=== PATIENT | male | born 1960 | race African-American/Black ===

== ENCOUNTER 2018-02-14 03:37 | Inpatient (IN) ==
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
[2018-02-14 06:29] LABS: Baso # (Auto) 0.1 th/mm3 (0.0-0.2); Baso % (Auto) 0.6 % (0.0-2.0); Hematocrit 41.3 % (39.0-51.0); Hemoglobin 13.6 gm/dL (13.0-17.0); Lymph # (Auto) 1.4 th/mm3 (1.0-4.8); Lymph % (Auto) 14.2 % (9.0-44.0); Mean Corpuscular Hemoglobin 31.7 pg (27.0-34.0); Mean Platelet Volume 7.9 fL (7.0-11.0); Mono # (Auto) 0.7 th/mm3 (0.0-0.9); Mono % (Auto) 7.5 % (0.0-8.0); Neut # (Auto) 7.8 th/mm3 (1.8-7.7); Neut % (Auto) 77.7 % (16.0-70.0); Platelet Count 332 th/mm3 (150-450); Red Cell Distribution Width 13.7 % (11.6-17.2)
[2018-02-14 06:43] LABS: Prothrombin Time 10.2 sec (9.8-11.6)
[2018-02-14 06:57] LABS: Albumin 3.6 g/dL (3.4-5.0); Anion Gap 8 meq/L (5-15); Aspartate Aminotransferase 38 U/L (15-37); Blood Urea Nitrogen 13 mg/dL (7-18); Calcium 8.7 mg/dL (8.5-10.1); Carbon Dioxide 22.6 meq/L (21.0-32.0); Chloride 105 meq/L (98-107); Glomerular Filtration Rate 77 mL/min (>89); Glucose,Random 99 mg/dL (74-106); Potassium 4.1 meq/L (3.5-5.1); Sodium 136 meq/L (136-145)
[2018-02-14 06:58] LABS: Alanine Aminotransferase 27 U/L (12-78)
[2018-02-14 07:00] LABS: Alkaline Phosphatase 91 U/L (45-117); Total Protein 8.5 g/dL (6.4-8.2)
--- NOTE | 2018-02-14 07:57 | ECG ---
Date Performed: 02/14/2018 Time Performed: 03:48:55 PTAGE: 58 years EKG: Baseline artifact present Sinus rhythm NORMAL ECG No significant change from prior electrocardiogram. PREVIOUS TRACING : 01/15/2006 12.54 DOCTOR: Macro Post Interpretating Date/Time 02/14/2018 07:57:23
[2018-02-14] MEDS ORDERED: Acetaminophen 325 MG Tablet PO PRN (08:00)
[2018-02-14] MEDS ORDERED: Diatrizoate Meglum/Diatrizoate Sod Liq 9 ML UDC PO ONE (10:00)
[2018-02-14] MEDS ORDERED: fentaNYL Citrate Inj 250 MCG/5 ML Ampul ONE (10:36)
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
--- NOTE | 2018-02-14 11:29 | P.RAD ---
Post CT Procedure Prog Note - Pre Procedure Diagnosis (1) Acute chest wall pain - Post Procedure Diagnosis (1) Acute chest wall pain - Procedure Information Procedure Date: 02/14/18 Supervising Radiologist: Clifford Jorgensen MD Anesthesia: Conscious Sedation - Plan of Activity Patient to Unit: Nursing Unit Patient condition: Good See PACS Report for procedural detail/treatment. Biopsy CT right Lung Specimen: Core Biopsy Fluid Description: Other (black)
--- NOTE | 2018-02-14 12:15 | XR ---
EXAM DATE: 02/14/2018 12:02 PM EST AGE/SEX: 58 years / Male INDICATIONS: S/P Right Lung Biopsy. Patient complains of chest pain. CLINICAL DATA: This is the patient's initial encounter. Patient reports that signs and symptoms have been present for 1 day and indicates a pain score of Nonresponsive. MEDICAL/SURGICAL HISTORY: None. None. COMPARISON: No prior exams available for comparison. FINDINGS The lungs are clear without infiltrate, nodule, or mass. There is no appreciable pleural ef fusion for technique. Heart and mediastinum are unremarkable. CONCLUSION: No acute cardiopulmonary disease. Electronically signed by: Nakul Myers MD 02/14/2018 12:14 PM EST
[2018-02-14] MEDS ORDERED: Naloxone Inj 0.4 MG/ML Vial IV.PUSH PRN (13:08)
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
--- NOTE | 2018-02-14 14:53 | CT ---
EXAM DATE: 02/14/2018 12:04 PM EST AGE/SEX: 58 years / Male INDICATIONS: Right lung mass CLINICAL DATA: This is the patient's initial encounter. Patient reports that signs and symptoms have been present for 1 day and indicates a pain score of 0/10. MEDICAL/SURGICAL HISTORY: None. None. COMPARISON: [facility] – [place], [place] CHEST W/O CONTRAST, 02/14/2018. . SEDATION TIME (min): 50 BIOPSY SITE: Right lung MEDICATION(S): 1 mg midazolam (Versed) IV 50 mcg fentanyl (Sublimaze) IV DEVICE(S): 19 gauge Introducer 19 gauge BARD biopsy needle Four . . PROCEDURE: CT guided Right lung biopsy Prior to the procedure informed consent was obtained. Any appropriate prior imaging studies were rev iewed. Using automated exposure control and adjustment of the mA and/or kV according to patient size , radiation dose was kept as low as reasonably achievable to obtain optimal diagnostic quality images . DICOM format image data is available electronically for review and comparison. The site was prepped in a sterile fashion. Full sterile technique was used, including cap, mask, meagan rile gloves and gown and a large sterile sheet. Hand hygiene and 2% chlorhexidine and/or betadine/al cohol prep was utilized per protocol for cutaneous antisepsis. The skin and subcutaneous tissues wer e infiltrated with local anesthetic solution. With CT guidance the previously identified target was localized. Biopsy was performed using the presc ribed needle as above. Adequate hemostasis was obtained with compression at the puncture site. Follow-up CT scan reveals no pneumothorax. Conscious sedation was performed with the prescribed dosages and duration as above in the presence of an independent trained radiology nurse to assist in the monitoring of the patient. EKG and oximetry remained stable throughout the procedure. The patient tolerated the procedure well and there were no complications. The patient was sent to Radiology Outpatient Unit in stable condition. FINDINGS: CONCLUSION: 1. Uncomplicated CT guided biopsy. Electronically signed by: Clifford Jorgensen MD 02/14/2018 2:52 PM EST
[2018-02-14] MEDS ORDERED: Haloperidol Inj 5 MG/ML Ampul IV.PUSH PRN (15:00)
[2018-02-14] MEDS ORDERED: Morphine Inj 4 MG/ML Vial IV.PUSH PRN ×2 (15:00)
[2018-02-14] MEDS ORDERED: LORazepam 1 MG Tablet PO PRN (15:00)
[2018-02-14] MEDS ORDERED: Morphine Sulfate Inj 2 MG/ML Vial IV.PUSH PRN (15:00)
[2018-02-14] MEDS ORDERED: Bisacodyl 10 MG Supp RECTAL PRN (15:00)
[2018-02-14] MEDS: oxyCODONE/Acetaminophen 10/325 Tablet PO PRN (15:03)
[2018-02-14 15:07] LABS: Free T4 (Free Thyroxine) 0.72 ng/dL (0.76-1.46); Thyroid Stimulating Hormone 1.38 uIU/mL (0.358-3.740)
--- NOTE | 2018-02-14 15:09 | XR ---
EXAM DATE: 02/14/2018 3:03 PM EST AGE/SEX: 58 years / Male INDICATIONS: Left hand pain from unknown injury, possible infection. CLINICAL DATA: This is the patient's initial encounter. Patient reports that signs and symptoms have been present for 1 day and indicates a pain score of 8/10. MEDICAL/SURGICAL HISTORY: None. None. COMPARISON: No prior exams available for comparison. FINDINGS: AP, lateral and oblique views of the left hand were obtained and demonstrate extensive soft tissue sw elling over the third digit. There is hazy periosteal new bone formation along the ulnar aspect of th e third middle phalanx. There are no radiopaque foreign bodies. There are diffuse degenerative joint changes greatest involving the third distal interphalangeal joint with joint space loss, sclerosis an d spurring. CONCLUSION: 1. Soft tissue swelling and hazy periosteal new bone formation involving the third middle phalanx. T his is concern for possible osteomyelitis. 2. Osteoarthritic change. Electronically signed by: Endy Heller MD 02/14/2018 3:08 PM EST
--- NOTE | 2018-02-14 15:28 | XR ---
EXAM DATE: 02/14/2018 3:04 PM EST AGE/SEX: 58 years / Male INDICATIONS: Status post right side lung biopsy. CLINICAL DATA: This is the patient's subsequent encounter. Patient reports that signs and symptoms h ave been present for 1 day and indicates a pain score of 4/10. MEDICAL/SURGICAL HISTORY: None. None. [place] [facility] [place]14/[place]. . FINDINGS: No definite pneumothorax is seen for technique. Right upper lobe mass is again seen not changed, baumann alan best visualized on the patient's prior chest CT obscured by the adjacent ribs. CONCLUSION: No pneumothorax post lung biopsy. Electronically signed by: Nakul Myers MD 02/14/2018 3:26 PM EST
[2018-02-14 16:20] LABS: Hepatitits B Surface Antigen Nonreactive (Nonreactive)
[2018-02-14 16:21] LABS: Hepatitis A IgM Antibody Nonreactive (Nonreactive)
[2018-02-14 17:03] LABS: Hemoglobin A1c 4.7 % (4.3-6.0)
--- NOTE | 2018-02-14 20:23 | CT ---
EXAM DATE: 02/14/2018 8:15 PM EST AGE/SEX: 58 years / Male INDICATIONS: Lung mass, abdomen pain. CLINICAL DATA: This is the patient's initial encounter. Patient reports that signs and symptoms have been present for 1 day and indicates a pain score of 5/10. MEDICAL/SURGICAL HISTORY: Hypertension. None. ORAL CONTRAST: Prescribed oral contrast ingested. RADIATION DOSE: 6.97 CTDI (mGy) COMPARISON: [facility] [place]ST [place]/O [place]AST, 02/14/2018. . TECHNIQUE: Multiple contiguous axial images were obtained through the abdomen and pelvis following b olus infusion of 94 ml Omnipaque 350 (iohexol) nonionic water-soluble contrast as a single exam dos e. Prescribed oral contrast ingested. Using automated exposure control and adjustment of the mA and/ or kV according to patient size, radiation dose was kept as low as reasonably achievable to obtain op timal diagnostic quality images. DICOM format image data is available electronically for review and comparison. FINDINGS: There is a right-sided pneumothorax identified. There is atelectasis at the right lung base. No pleur al or pericardial effusions are seen. A tiny low-density lesion in the posterior right hepatic lobe t oo small to characterize by CT criteria. It measures 6.6 mm on image 31. Gallbladder, spleen, pancrea s, adrenals, kidneys unremarkable. The appendix is normal. Urinary bladder, prostate unremarkable. Th ere is no evidence for bowel obstruction. Scattered atherosclerotic plaquing of the aorta and iliac v essels are seen. There is a small fat-containing umbilical hernia. The examination demonstrates righ t inguinal adenopathy up to 1.8 cm in short axis dimension. There are degenerative changes of the spi ne noted. There is moderate to severe osteoarthritis of the bilateral hips. There is some heterotopic bone seen extending anteriorly from the left acetabulum. There is an intramuscular lipoma is suspect ed near the insertion of the iliopsoas muscle. CONCLUSION: 1. Right-sided pneumothorax. 2. Atherosclerosis. 3. Right inguinal lymphadenopathy. Electronically signed by: Laith Ko MD 02/14/2018 8:22 PM EST
[2018-02-14] MEDS ORDERED: Zolpidem Tartrate 5 MG Tablet PO PRN (21:00)
[2018-02-14] MEDS: Famotidine 20 MG Tablet PO SCH (22:37)
[2018-02-14] MEDS: Senna/Docusate Sodium 8.6/50 MG Tablet PO SCH (22:37)
[2018-02-14] MEDS: Amoxicillin/Clavulanate 875/125 MG Tablet PO SCH (22:37)
[2018-02-15 04:59] LABS: Alanine Aminotransferase 29 U/L (12-78)
[2018-02-15 05:01] LABS: Alkaline Phosphatase 87 U/L (45-117); Phosphorus 3.6 mg/dL (2.5-4.9); Total Protein 8.3 g/dL (6.4-8.2)
[2018-02-15 05:04] LABS: Albumin 3.3 g/dL (3.4-5.0); Anion Gap 10 meq/L (5-15); Aspartate Aminotransferase 44 U/L (15-37); Blood Urea Nitrogen 13 mg/dL (7-18); Calcium 8.6 mg/dL (8.5-10.1); Carbon Dioxide 22.8 meq/L (21.0-32.0); Chloride 102 meq/L (98-107); Glomerular Filtration Rate 78 mL/min (>89); Glucose,Random 101 mg/dL (74-106); Magnesium 2.2 mg/dL (1.5-2.5); Potassium 4.5 meq/L (3.5-5.1); Sodium 135 meq/L (136-145)
[2018-02-15 05:07] LABS: Baso % (Auto) 0.6 % (0.0-2.0); Hematocrit 41.8 % (39.0-51.0); Hemoglobin 14.1 gm/dL (13.0-17.0); Lymph # (Auto) 1.5 th/mm3 (1.0-4.8); Lymph % (Auto) 21.2 % (9.0-44.0); Mean Corpuscular HGB Conc 33.8 % (32.0-36.0); Mean Corpuscular Hemoglobin 31.7 pg (27.0-34.0); Mean Corpuscular Volume 93.9 fL (80.0-100.0); Mean Platelet Volume 8.3 fL (7.0-11.0); Mono # (Auto) 0.7 th/mm3 (0.0-0.9); Mono % (Auto) 9.9 % (0.0-8.0); Neut # (Auto) 4.7 th/mm3 (1.8-7.7); Neut % (Auto) 68.3 % (16.0-70.0); Platelet Count 316 th/mm3 (150-450); Red Blood Count 4.45 mil/mm3 (4.50-5.90); Red Cell Distribution Width 13.6 % (11.6-17.2); White Blood Count 6.9 th/mm3 (4.0-11.0)
[2018-02-15] MEDS: Famotidine 20 MG Tablet PO SCH ×2 (08:00→20:42)
[2018-02-15] MEDS: oxyCODONE/Acetaminophen 10/325 Tablet PO PRN (08:00)
[2018-02-15] MEDS: Folic Acid 1 MG Tablet PO SCH (08:00)
[2018-02-15] MEDS: Multivitamin/Minerals Therapeutic Tablet PO SCH (08:01)
[2018-02-15] MEDS: Senna/Docusate Sodium 8.6/50 MG Tablet PO SCH ×2 (08:01→20:42)
[2018-02-15] MEDS: Amoxicillin/Clavulanate 875/125 MG Tablet PO SCH ×2 (08:01→20:42)
--- NOTE | 2018-02-15 08:04 | XR ---
EXAM DATE: 02/15/2018 7:58 AM EST AGE/SEX: 58 years / Male INDICATIONS: Pnemuothorax. CLINICAL DATA: This is the patient's subsequent encounter. Patient reports that signs and symptoms h ave been present for 2 days and indicates a pain score of 0/10. MEDICAL/SURGICAL HISTORY: Hypertension. . Hand. COMPARISON: [facility] – [place], CT ABDOMEN & PELVIS W CONTRAST, 02/14/2018. . FINDINGS: Very subtle right apical pneumothorax. Redemonstration of biopsied mass in the right upper lobe. Card iomediastinal contours are stable. Remainder of exam is unchanged. CONCLUSION: 1. Very subtle stable right apical pneumothorax. Electronically signed by: Dimitrios Santos MD 02/15/2018 8:03 AM EST
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
[2018-02-16] MEDS: oxyCODONE/Acetaminophen 10/325 Tablet PO PRN ×2 (09:45→21:05)
[2018-02-16] MEDS: Famotidine 20 MG Tablet PO SCH ×2 (09:47→21:06)
[2018-02-16] MEDS: Senna/Docusate Sodium 8.6/50 MG Tablet PO SCH ×2 (09:47→21:06)
[2018-02-16] MEDS: Folic Acid 1 MG Tablet PO SCH (09:47)
[2018-02-16] MEDS: Amoxicillin/Clavulanate 875/125 MG Tablet PO SCH ×2 (09:47→21:05)
[2018-02-16] MEDS: Multivitamin/Minerals Therapeutic Tablet PO SCH (09:47)
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
--- NOTE | 2018-02-16 15:31 | P.PNIM ---
Physical Exam Vital signs: Last Vital Signs Temp 97.6 F 02/16/18 12:37 Pulse 98 H 02/16/18 12:37 Resp 16 02/16/18 12:37 BP 127/77 02/16/18 12:37 Pulse Ox 92 L 02/16/18 12:37 Intake & Output 02/14/18 02/15/18 02/16/18 02/17/18 06:59 06:59 06:59 06:59 Intake Total 150 / 150 500 / 500 Output Total 600 / 600 Balance 150 / 150 -600 / -600 500 / 500 Weight 81.193 kg 81.193 kg Narrative: GENERAL: not in acute distress. HEENT:Not pale,anicteric ,moist mucous membranes NECK: Supple, trachea midline. No JVD or lymphadenopathy. CARDIOVASCULAR:rrr,no murmurs or rubs. CHEST: CTAB. right-sided chest tenderness due to fracture RESPIRATORY: Breath sounds equal bilaterally. No accessory muscle use. GASTROINTESTINAL: Abdomen soft, non-tender, nondistended. EXT: no edema. lt middle finger mild to moderate swelling with dried scab on dorsal and lateral aspect. no discharge or tenderness. BACK: Nontender without obvious deformity. No CVA tenderness. INSIGHT AND JUDGEMENT ARE GOOD MOOD AND BEHAVIOR ARE APPROPRIATE Results Labs CBC & Chem 7: 02/15/18 04:20 02/15/18 04:20 Procedures Procedures: Krishan Keita SR CT biopsy lung RT Signed EXAM DATE: 02/14/2018 12:04 PM EST AGE/SEX: 58 years / Male INDICATIONS: Right lung mass CLINICAL DATA: This is the patient's initial encounter. Patient reports that signs and symptoms have been present for 1 day and indicates a pain score of 0/ 10. MEDICAL/SURGICAL HISTORY: None. None. [place] [facility] [place]. . SEDATION TIME (min): 50 BIOPSY SITE: Right lung MEDICATION(S): 1 mg midazolam (Versed) IV 50 mcg fentanyl (Sublimaze) IV DEVICE(S): 19 gauge Introducer 19 gauge BARD biopsy needle Four . . PROCEDURE: CT guided Right lung biopsy Prior to the procedure informed consent was obtained. Any appropriate prior imaging studies were reviewed. Using automated exposure control and adjustment of the mA and/or kV according to patient size, radiation dose was kept as low as reasonably achievable to obtain optimal diagnostic quality images. DICOM format image data is available electronically for review and comparison. The site was prepped in a sterile fashion. Full sterile technique was used, including cap, mask, sterile gloves and gown and a large sterile sheet. Hand hygiene and 2% chlorhexidine and/or betadine/alcohol prep was utilized per protocol for cutaneous antisepsis. The skin and subcutaneous tissues were infiltrated with local anesthetic solution. With CT guidance the previously identified target was localized. Biopsy was performed using the prescribed needle as above. Adequate hemostasis was obtained with compression at the puncture site. Follow-up CT scan reveals no pneumothorax. Conscious sedation was performed with the prescribed dosages and duration as above in the presence of an independent trained radiology nurse to assist in the monitoring of the patient. EKG and oximetry remained stable throughout the procedure. The patient tolerated the procedure well and there were no complications. The patient was sent to Radiology Outpatient Unit in stable condition. FINDINGS: CONCLUSION: 1. Uncomplicated CT guided biopsy. Electronically signed by: Clifford Jorgensen MD 02/14/2018 2:52 PM EST Assessment and Plan (1) Rib fractures: Code(s): S22.39XA - Fracture of one rib, unspecified side, initial encounter for closed fracture Status: Acute (2) Lung mass: Code(s): R91.8 - Other nonspecific abnormal finding of lung field Status: Acute (3) Acute chest wall pain: Code(s): R07.89 - Other chest pain Status: Acute (4) Adenocarcinoma of lung: Code(s): C34.90 - Malignant neoplasm of unspecified part of unspecified bronchus or lung Status: Acute Plan 1.Right UPPER LOBE lung mass status post interventional radiology biopsies -biopsy done,pathology showing moderately differentiated adenocarcinoma. CT abdo /pelvis without any mets. appears to be stage 1. oncology consult appreciated. cardiothoracic has been consulted. 2.Rt Rib fractures due to trauma- pain adequately controlled. encourage incentive spirometry. 3.Left hand infection on middle finger -Augmentin 875 twice daily orally -Infectious disease consult if no improvement encourage elevation Tobacco abuse recommend smoking cessation-NICODERM Alcohol abuse recommend alcohol [id number], THIAMINE, FOLIC ACID Crack cocaine abuse patient counseled on cessation. ATIVAN PRN Progress Note: Quality VTE Deep Vein Thrombosis/Pulmonary Embolism Present on Admission: No
[2018-02-16 21:53] VITALS: RESP 18
[2018-02-17] MEDS: oxyCODONE/Acetaminophen 10/325 Tablet PO PRN ×2 (04:25→15:40)
[2018-02-17] MEDS: Multivitamin/Minerals Therapeutic Tablet PO SCH (08:21)
[2018-02-17] MEDS: Senna/Docusate Sodium 8.6/50 MG Tablet PO SCH (08:21)
[2018-02-17] MEDS: Folic Acid 1 MG Tablet PO SCH (08:21)
[2018-02-17] MEDS: Famotidine 20 MG Tablet PO SCH (08:22)
[2018-02-17] MEDS: Amoxicillin/Clavulanate 875/125 MG Tablet PO SCH (08:22)
--- NOTE | 2018-02-17 11:16 | P.PNIM ---
Subjective Interval history: Not short of breath, no significant chest pain. Awaiting CT surgery input. Physical Exam Vital signs: Vital Signs 02/16/18 12:37 02/16/18 16:00 02/16/18 17:09 Temperature 97.6 F 98.4 F Pulse Rate 98 H 93 H 91 H Respiratory Rate 16 23 Blood Pressure 127/77 121/83 Pulse Oximetry 92 L 94 L 02/16/18 20:00 02/17/18 00:00 02/17/18 04:00 Temperature 98.2 F 98.3 F 98.1 F Pulse Rate 120 H 96 H 95 H Respiratory Rate 18 18 18 Blood Pressure 119/72 112/74 120/75 Pulse Oximetry 95 93 L 93 L 02/17/18 08:00 Temperature 97.2 F L Pulse Rate 84 Respiratory Rate 18 Blood Pressure 121/83 Pulse Oximetry 95 Intake & Output 02/16/18 02/17/18 02/17/18 18:59 06:59 18:59 Intake Total 500 / 500 120 / 120 Output Total 400 / 400 Balance 500 / 500 -280 / -280 Weight 86.9 kg Intake: Oral 500 / 500 120 / 120 Output: Urine 400 / 400 Other: # Voids 2 # Bowel Movements 0 Narrative: GENERAL: not in acute distress. CHEST: CTAB. right-sided chest tenderness due to fracture RESPIRATORY: Breath sounds equal bilaterally. No accessory muscle use. GASTROINTESTINAL: Abdomen soft, non-tender, nondistended. EXT: no edema. lt middle finger mild to moderate swelling with dried scab on dorsal and lateral aspect. no discharge or tenderness. Nontender. BACK: Nontender without obvious deformity. No CVA tenderness. Results - Labs CBC & Chem 7: 02/15/18 04:20 02/15/18 04:20 Laboratory Results - last 24 hr 02/16/18 12:54 POC Glucose 133 H - Procedures Krishan Keita SR CT biopsy lung RT Signed EXAM DATE: 02/14/2018 12:04 PM EST AGE/SEX: 58 years / Male INDICATIONS: Right lung mass CLINICAL DATA: This is the patient's initial encounter. Patient reports that signs and symptoms have been present for 1 day and indicates a pain score of 0/ 10. MEDICAL/SURGICAL HISTORY: None. None. COMPARISON: [facility] [place]AST, 02/14/2018. . SEDATION TIME (min): 50 BIOPSY SITE: Right lung MEDICATION(S): 1 mg midazolam (Versed) IV 50 mcg fentanyl (Sublimaze) IV DEVICE(S): 19 gauge Introducer 19 gauge BARD biopsy needle Four . . PROCEDURE: CT guided Right lung biopsy Prior to the procedure informed consent was obtained. Any appropriate prior imaging studies were reviewed. Using automated exposure control and adjustment of the mA and/or kV according to patient size, radiation dose was kept as low as reasonably achievable to obtain optimal diagnostic quality images. DICOM format image data is available electronically for review and comparison. The site was prepped in a sterile fashion. Full sterile technique was used, including cap, mask, sterile gloves and gown and a large sterile sheet. Hand hygiene and 2% chlorhexidine and/or betadine/alcohol prep was utilized per protocol for cutaneous antisepsis. The skin and subcutaneous tissues were infiltrated with local anesthetic solution. With CT guidance the previously identified target was localized. Biopsy was performed using the prescribed needle as above. Adequate hemostasis was obtained with compression at the puncture site. Follow-up CT scan reveals no pneumothorax. Conscious sedation was performed with the prescribed dosages and duration as above in the presence of an independent trained radiology nurse to assist in the monitoring of the patient. EKG and oximetry remained stable throughout the procedure. The patient tolerated the procedure well and there were no complications. The patient was sent to Radiology Outpatient Unit in stable condition. FINDINGS: CONCLUSION: 1. Uncomplicated CT guided biopsy. Electronically signed by: Clifford Jorgensen MD 02/14/2018 2:52 PM EST Assessment and Plan - Assessment (1) Rib fractures Code(s): S22.39XA - Fracture of one rib, unspecified side, initial encounter for closed fracture Status: Acute (2) Lung mass Code(s): R91.8 - Other nonspecific abnormal finding of lung field Status: Acute (3) Acute chest wall pain Code(s): R07.89 - Other chest pain Status: Acute (4) Adenocarcinoma of lung Code(s): C34.90 - Malignant neoplasm of unspecified part of unspecified bronchus or lung Status: Acute - Plan This is a 58-year-old male presenting to the hospital with right-sided chest pain Right UPPER LOBE lung mass status post interventional radiology biopsies -biopsy done,pathology showing moderately differentiated adenocarcinoma. CT abdo /pelvis without any mets, appears to be stage 1, oncology on board, cardiothoracic has been consulted, recommended to discharge the patient and follow-up with Dr. Olson next week. Rt Rib fractures due to trauma- pain adequately controlled. encourage incentive spirometry. Left hand infection on middle finger -Augmentin 875 twice daily orally finish for 1 week of treatment. Tobacco abuse recommend smoking cessation-NicoDerm patch Alcohol abuse recommend alcohol cessation-cont CIWA< MVI, Thiamine, Folic acidCIWA-MVI, THIAMINE, FOLIC ACID Crack cocaine abuse patient counseled on cessation- ativan prn
--- NOTE | 2018-02-17 12:25 | P.PNCV ---
- Note Subjective/Hospital Course: Newly diagnosed lung cancer. From surgical standpoint, okay to discharge patient. Follow up with Dr. Badillo next week to schedule surgery. Objective: Vital Signs - 24 hr 02/16/18 12:37 02/16/18 16:00 02/16/18 17:09 Temperature 97.6 F 98.4 F Pulse Rate 98 H 93 H 91 H Respiratory Rate 16 23 Blood Pressure 127/77 121/83 Pulse Oximetry 92 L 94 L 02/16/18 20:00 02/17/18 00:00 02/17/18 04:00 Temperature 98.2 F 98.3 F 98.1 F Pulse Rate 120 H 96 H 95 H Respiratory Rate 18 18 18 Blood Pressure 119/72 112/74 120/75 Pulse Oximetry 95 93 L 93 L 02/17/18 08:00 Temperature 97.2 F L Pulse Rate 84 Respiratory Rate 18 Blood Pressure 121/83 Pulse Oximetry 95 Result Diagrams: 02/15/18 04:20 02/15/18 04:20
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
[2018-02-17 16:14] VITALS: BP 133/77; PULSE 89; TEMP 98.3; O2SAT 97
== END 2018-02-17 16:12 | disposition home or self-care (01) ==
LOC: NEPE 03:37 → NEDA 03:37 → NEPFCDU 14:16 → N04 02-16 13:33
PROVIDERS: ADMIT Hospitalist; ATTEND Hospitalist
DX: Y04.0XXA Assault by unarmed brawl or fight, initial encounter; R07.89 Other chest pain; L08.9 Local infection of the skin and subcutaneous tissue, unspecified; C34.91 Malignant neoplasm of unspecified part of right bronchus or lung; S22.41XA Multiple fractures of ribs, right side, initial encounter for closed fracture; N28.9 Disorder of kidney and ureter, unspecified; F10.10 Alcohol abuse, uncomplicated; I10 Essential (primary) hypertension; F17.210 Nicotine dependence, cigarettes, uncomplicated; F14.10 Cocaine abuse, uncomplicated